=== PATIENT | female | born 1970 | race Caucasian/White ===

== ENCOUNTER 2021-02-17 07:33 | Outpatient (CLI) | payer BC, SELFPAY ==
--- NOTE | ~2021-02-17 | US_ITS ---
EXAMINATION: US right upper quadrant DATE: 02/17/2021 08:22 INDICATION: Disease of the gallbladder. TECHNIQUE: Multiple grayscale and Doppler ultrasound images of the abdomen were obtained. COMPARISON: CT abdomen and pelvis 07/14/2019 FINDINGS: The visualized portions of the head and body of the pancreas are normal. There is diffuse h epatic steatosis. There is normal flow in main portal vein. The gallbladder is again distended and ag ain contains a stone in the neck. No gallbladder wall thickening or sonographic Powers sign. The comm on duct is normal and measures 5 mm. IMPRESSION: 1. Cholelithiasis. Gallbladder distention again seen, which may be secondary to fasting. No specific evidence of acute cholecystitis. Reviewed, dictated and finalized at location B.
== END 2021-02-17 07:34 | disposition home or self-care (01) ==
PROVIDERS: PCP Family Medicine; Visit Provider Family Medicine
DX: E78.1 Pure hyperglyceridemia (principal); I10 Essential (primary) hypertension; K82.9 Disease of gallbladder, unspecified; Z79.899 Other long term (current) drug therapy
CPT/HCPCS: 76705

== ENCOUNTER 2021-03-31 13:05 | Outpatient (CLI) | payer BC, SELFPAY ==
--- NOTE | 2021-03-31 13:15 | ECG_ITS ---
Measurements Intervals [place] Rate: 74 P: 24 TN: 151 QRS: -19 QRSD: 85 T: 22 QT: 379 QTc: 422 Interpretive Statements SINUS RHYTHM INCOMPLETE RIGHT BUNDLE BRANCH BLOCK VOLTAGE CRITERIA FOR LVH POOR R WAVE PROGRESSION, ANTERIOR LEADS MINIMAL Q WAVES- HIGH LATERAL LEADS BASELINE ARTIFACT- I, II BORDERLINE ECG Electronically Signed On 03-31-2021 13:34:36 CDT by Brian Zambrano D.O.
[2021-03-31 14:08] LABS: Alanine Aminotransferase 20 U/L (4-35); Albumin Level 4.2 g/dL (3.5-5.1); Alkaline Phosphatase 82 U/L (38-126); Amylase 57 U/L (30-110); Aspartate Amino Transferase 25 U/L (14-36); Bilirubin,Total 0.2 mg/dL (0.2-1.3); Lipase 63 U/L (23-300)
== END 2021-03-31 13:06 | disposition home or self-care (01) ==
LOC: ANHSURGERY 13:08
PROVIDERS: PCP Family Medicine; Visit Provider Surgery
DX: K80.20 Calculus of gallbladder without cholecystitis without obstruction (principal); I10 Essential (primary) hypertension; Z01.818 Encounter for other preprocedural examination; I45.10 Unspecified right bundle-branch block
CPT/HCPCS: 36415; 80076; 82150; 83690; 86850; 86900; 86901; 93005

== ENCOUNTER 2021-04-08 00:49 | Day surgery (SDC) | payer BC, SELFPAY ==
[2021-03-26 14:44] VITALS: BMI 41.4
[2021-04-08] VITALS (11 sets, daily range): BP systolic 110–133; BP diastolic 53–88; PULSE 66–89; RESP 12–22; TEMP 36.8; O2SAT 98–100
[2021-04-08] MEDS: ACETAMINOPHEN 500 MG TABLET 1000 MG PO (06:55)
--- NOTE | 2021-04-08 07:06 | WPDANESEPPF ---
Anes - Initial Pre Proc Eval Procedure: Operation Date: 04/08/21 07:30 Proposed Procedures p Laparoscopic Incarcerated Ventral Hernia Repair with Mesh, Davinci Assisted - Milind Castellon DO s Laparoscopic Cholecystectomy, Possible Open - Milind Castellon DO Date/Time: 04/08/21 07:06 Surgeon: Milind Castellon DO Pre Op Diagnosis: incarc ventral hernia, cholelithiasis Patient Data Age: 51 Gender: F Height: 1.65 m Weight: 113 kg Allergies Allergy/AdvReac Type Severity Reaction Status Date / Time Sulfa (Sulfonamide Allergy Intermediate Hives Verified 04/08/21 06:48 Antibiotics) adhesive tape AdvReac Intermediate EXCORIATION Verified 04/08/21 06:48 hydrocodone AdvReac Intermediate NAUSEA/VOMI Verified 04/08/21 06:48 TING Home Medications Medication Instructions Recorded Confirmed Type lisinopril 10 mg PO QAM 03/26/21 04/08/21 History Patient hx anesthesia problems: none Family hx anesthesia problems: none PMFSH Past Medical History Medical History Breast cancer History of blood transfusion History of kidney stones Hypertension Surgical History Surgical History H/O breast reconstruction H/O mastectomy H/O oophorectomy H/O: hysterectomy 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 Family History Family History Father Hypertension Mother Hypertension Family history of malignant neoplasm Breast cancer Spotting, liver Sibling Breast cancer Grandparent Diabetes mellitus Breast cancer Cerebrovascular accident Social History Social History Smoking packs per day: 0.25 Smoking cigarettes per day: 5.0 Years smoked: 9 Smoking pack-years: 2.25 Smoking status: Former smoker Smoking end date: 04/09/10 Substance use: never Living arrangements: with family Additional living arrangements comments: SPOUSE 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 Questions were solicited and answers provided to the satisfaction of the patient/family/POA.
[2021-04-08] MEDS: SCOPOLAMINE 1.5 MG PATCH TRANSDERM (07:11)
--- NOTE | 2021-04-08 07:15 | WPDHPUPDATE1 ---
History and Physical Update Update Date/Time: 04/08/21 07:15 History and Physical has been reviewed, including an updated exam of the patient. There are NO changes in the patient's condition. Risks, benefits, and alternatives have been discussed and questions answered. Patient agrees to proceed with procedure.
--- NOTE | 2021-04-08 07:16 | PM.IMHP ---
H&P: HPI History of Present Illness Date/Time: 04/08/21 07:16 Chief Complaint: hernia, gallstones Narrative: 51 yo woman presents for lap karen and ventral hernia repair. She has been having symptoms with eating and also has a hernia superior to her umbilicus that is getting larger and causing pain. Review of Systems Review of Systems: All systems reviewed & are unremarkable except as noted in HPI and below Constitutional: Constitutional: Denies chills, Denies fever(s), Denies headache(s) and Denies weight loss Eyes: Eyes: Denies change in vision ENT: Denies dizziness, Denies headache(s), Denies neck mass and Denies throat swelling Cardiovascular: Cardiovascular: Denies chest pain, Denies lightheadedness and Denies dyspnea Respiratory: Respiratory: Denies cough, Denies dyspnea and Denies wheezing Gastrointestinal: Gastrointestinal: Denies abdominal pain, Denies change in bowel habits, Denies nausea and Denies vomiting Genitourinary: Genitourinary: Denies hematuria and Denies dysuria Musculoskeletal: Musculoskeletal: Reports as per HPI Integumentary/Breasts: Skin/Breast: Reports as per HPI Neurologic: Denies dizziness and Denies headache(s) Allergic/Immunologic: Allergic/Immunologic: Denies throat swelling and Denies wheezing [facility] Past Medical History Medical History Breast cancer History of blood transfusion History of kidney stones Hypertension Surgical History Surgical History H/O breast reconstruction H/O mastectomy H/O oophorectomy H/O: hysterectomy 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 Family History Family History Father Hypertension Mother Hypertension Family history of malignant neoplasm Breast cancer Spotting, liver Sibling Breast cancer Grandparent Diabetes mellitus Breast cancer Cerebrovascular accident Social History Social History Smoking packs per day: 0.25 Smoking cigarettes per day: 5.0 Years smoked: 9 Smoking pack-years: 2.25 Smoking status: Former smoker Smoking end date: 04/09/10 Substance use: never Living arrangements: with family Additional living arrangements comments: SPOUSE 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 [employer] Gender identity (if verbalized by the patient): Female Spiritual care concerns: No Meds Home Medications and Allergies Home Medications Medication Instructions Recorded Confirmed Type lisinopril 10 mg PO QAM 03/26/21 04/08/21 History Allergies Allergy/AdvReac Type Severity Reaction Status Date / Time Sulfa (Sulfonamide Allergy Intermediate Hives Verified 04/08/21 06:48 Antibiotics) adhesive tape AdvReac Intermediate EXCORIATION Verified 04/08/21 06:48 hydrocodone AdvReac Intermediate NAUSEA/VOMI Verified 04/08/21 06:48 TING Exam Const: General: no acute distress and alert Orientation/consciousness: patient oriented x3 HENMT: Head: normocephalic and atraumatic Ears: hearing grossly normal bilaterally General nose exam: Normal nares present Mouth: Yes Normal oral and palatal mucosa present Eyes: Periorbital: periorbital findings normal Sclera: sclerae normal EOM: EOMs intact bilaterally Neck: Neck: normal visual inspection, no lymphadenopathy and trachea midline Chest: Chest palpation & inspection: normal inspection of the chest Resp: Effort & Inspection: normal respiratory effort Auscultation: clear to auscultation bilaterally Cardio: Jugular venous distension: no JVD Rate: regular rate Rhythm: regular rhythm Heart sounds: S1 normal heart sound present and S2 normal heart sound present Peripheral pulses: Peripheral pulses 2+ throughout GI: Inspection: normal to inspection GI Palp: Yes Soft to palpation, No Tenderness to palpation present (GI), No
[2021-04-08] MEDS: KETOROLAC 15 MG/ML VIAL (*BKC) IV PUSH (07:26)
[2021-04-08] MEDS: LACTATED RINGERS 1,000 ML 30 ML IV CONT ×2 (07:27→10:48)
[2021-04-08] MEDS: ceFAZolin 2 GM/D5W 50 ML 2 GM/50 ML BAG IVPB (07:34)
--- NOTE | 2021-04-08 10:41 | W.PM.PROC2 ---
Procedure Note - Detailed Date of Procedure 04/08/21 Pre-op Diagnosis incarcerated ventral hernia, cholelithiasis Post-op Diagnosis same Procedure Performed 1. Laparoscopic Ventral Hernia Repair with Mesh, da Joesph assisted 2. Laparoscopic cholecystectomy, da Joesph assisted Surgeon Milind Castellon, Anesthesia general and local (Exparel) Indications This is a 51-year-old woman who presents with a ventral hernia that has been present for about the last 8-10 years. This started out as a small lump that has grown in size over the years. Now she states that this is about the size of a baseball and is causing more discomfort. She had a CT of her abdomen and pelvis done 2 years ago which showed evidence of a ventral supraumbilical hernia containing fat. On exam she has a hernia containing omentum that is unable to be reduced. She is also experiencing pain and diarrhea with eating fried or fatty foods. She was found to have cholelithiasis on gallbladder ultrasound. Discussions were made with the patient about treatment options and decision was made to proceed with laparoscopic cholecystectomy and laparoscopic ventral hernia repair with mesh, de Joesph assisted. Findings laparoscopic cholecystectomy and incarcerated ventral hernia repair was performed. The gallbladder had a large stone within the neck and had some chronic gallbladder wall thickening. The cystic duct appeared normal in size. The gallbladder was removed and sent to the lab for pathology. The patient was found to have a 3 cm wide by 2 cm vertical ventral hernia located about 6 cm superior to the umbilicus. This was incarcerated with omentum. The omentum was reduced and the hernia sac was also reduced along with the falciform ligament. The fascia was closed transversely with 0 strata Fix running absorbable suture and then a Symbotex 15 cm x 10 cm mesh was placed as a robotic intraperitoneal onlay mesh. The mesh was secured to the abdominal wall using 2 0 V lock running absorbable suture. Description of Procedure Procedure as well as risks, benefits, and alternatives were discussed with the patient. Written consent was obtained and placed in chart prior to procedure. Patient was brought back to surgical suite. She was placed supine on operating table. Time-out was done to confirm patient and procedure. she was then intubated by the anesthesia department. A bump was placed under her left hip, and the bed was flexed slightly to extend the space between her costal margin and iliac crest. her abdomen was prepped and draped in sterile fashion using chlorhexidine prep. A 5 millimeter incision was made in the left upper quadrant, and a 5 millimeter Optiview trocar was advanced through the abdominal layers under direct visualization. Once inside the abdominal cavity, carbon dioxide insufflation was used to create a pneumoperitoneum. her abdomen was inspected. An 8 millimeter incision was made in the left lower quadrant, and an 8 millimeter robotic trocar was placed under direct visualization. Another 8 millimeter incision was made in the left lateral abdomen, and an 8 millimeter robotic trocar was placed under direct visualization. Exparel was infiltrated along the lateral abdominal roque to perform a transversus abdominis plane block bilaterally. The 5 millimeter port was removed, the incision was extended to 12 millimeters, and a 12 millimeter air seal port was placed under direct visualization. A Javy-Bueno cone was also used to place an 0-Vicryl simple interrupted suture at this trocar site. another 8 mm incision was made in the left lateral abdomen and an 8 mm trocar was inserted under direct visualization. The robotic arms were brought up to the patient's bedside and secured to the ports. The camera and instruments were inserted, and I then moved over to the robotic console and took control of the camera and instruments. After careful thorough inspection of the abdominal ca
[2021-04-08] MEDS: fentaNYL CITRATE INJ (*CRX) 100 MCG/2 ML VIAL 25 MCG IV PUSH ×2 (11:20→11:32)
[2021-04-08] MEDS: ONDANSETRON INJ 4 MG/2 ML VIAL IV PUSH (11:21)
[2021-04-08] MEDS: oxyCODONE HCL (*CRX) 5 MG TAB IR PO (12:39)
== END 2021-04-08 13:39 | disposition home or self-care (01) ==
PROVIDERS: PCP Family Medicine; Visit Provider Surgery
PROC: (CPT 47562; principal; 2021-04-08 07:30)
PROC: 0FT44ZZ Resection of Gallbladder, Percutaneous Endoscopic Approach (ICD-10-PCS; CPT 47562; 2021-04-08 07:30)
DX: K43.6 Other and unspecified ventral hernia with obstruction, without gangrene (principal); K80.10 Calculus of gallbladder with chronic cholecystitis without obstruction; I10 Essential (primary) hypertension; Z85.3 Personal history of malignant neoplasm of breast; Z87.891 Personal history of nicotine dependence; E66.01 Morbid (severe) obesity due to excess calories; Z68.41 Body mass index [BMI] 40.0-44.9, adult
CPT/HCPCS: 47562; 49653; S2900; 36415; 80076; 82150; 83690; 86850; 86900; 86901; 88304; 93005; A9270; C1781; C9290; J0690; J1100; J1200; J1885; J2250; J2370; J2405; J2704; J2710; J3010; J7030; J7120

== ENCOUNTER 2021-05-04 10:16 | Observation (INO) | payer BC, SELFPAY ==
[2021-05-04] VITALS (28 sets, daily range): BP systolic 137–183; BP diastolic 80–96; PULSE 93–109; RESP 13–27; TEMP 36.3–38.1; O2SAT 91–100; BMI 41.3
--- NOTE | ~2021-05-04 | CT_ITS ---
EXAMINATION: CT abdomen pelvis w con DATE: 05/04/2021 13:35 INDICATION: Fever after recent hernia surgery. TECHNIQUE: Computed tomography (CT) of the abdomen and pelvis was performed with 100 cc Omnipaque 350 intravenous contrast. The dose-length product was 1438.38 mGy-cm. Automated exposure control and ite rative reconstruction technique were employed. COMPARISON: CT dated 07/14/2019. FINDINGS: There are scattered calcified granulomas in the mid and lower lungs. There is a 6 mm left l ower lobe nodule which is not clearly calcified, unchanged from prior study, also likely granulomatou s disease. Heart size normal. No significant pleural or pericardial effusion. Fatty infiltration of t he liver. No significant vascular abnormality. The spleen, pancreas, adrenal glands and left kidney a re unremarkable. There is moderate dilation of the right renal pelvis, suspicious for UPJ obstruction . Bone or no obstructing stone or mass is identified. There is a small liver cyst inferiorly in the r ight hepatic lobe. Nonobstructive bowel gas pattern. There is a small loculated fluid collection ante rior to the rectus muscles measuring 4.4 x 1.5 x 5.5 cm. There are surgical changes in the anterior a bdominal wall. There is mild subcutaneous stranding overlying the anterior abdominal wall. No abnorma l pelvic masses or fluid collections. Bladder is unremarkable. Nonobstructing bilateral nephrolithias is. IMPRESSION: 1. Moderate right hydronephrosis with transition at the UPJ, consistent with UPJ obstruction. 2: Abnormal fluid collection anterior abdominal wall which may represent postoperative seroma/hematom a, although infection is not excluded. 3: Nonobstructing bilateral nephrolithiasis. 4: Stable 6 mm left lower noncalcified granuloma. Additional calcified granulomas are present bilater ally. Reviewed, dictated and finalized at location A. IMPRESSION: 1. Moderate right hydronephrosis with transition at the UPJ, consistent with UP J obstruction. 2: Abnormal fluid collection anterior abdominal wall which may represent postop erative seroma/hematoma, although infection is not excluded. 3: Nonobstructing bilateral nephrolithiasis. 4: Stable 6 mm left lower noncalcified granuloma. Additional calcified granulom as are present bilaterally.
--- NOTE | 2021-05-04 10:46 | PC.NURSE ---
NAD upon arrival breathing and skin signs wnl.
[2021-05-04] MEDS: SODIUM CHLORIDE 0.9% IV 1,000 ML 999 ML IV CONT (12:42)
[2021-05-04 13:12] LABS: Basophils Percent Auto 0.2 % (0.2-1.2); Eosinophils Percent Auto 0.3 % (0-4.4); Hematocrit 38.6 % (37.0-47.0); Hemoglobin 12.1 g/dL (12.0-15.0); Immature Granulocyte Absolute 0.04 K/mm3 (0.00-0.031); Immature Granulocyte Percent A 0.4 % (0-0.5); Lymphocytes Absolute Auto 1.34 K/mm3 (0.9-3.2); Lymphocytes Percent Auto 12.1 % (18.3-44.2); Mean Corpuscular HGB Conc 31.3 g/dl (32-36); Mean Corpuscular Hemoglobin 27.8 pg (26-34); Mean Corpuscular Volume 88.5 fl (80-100); Mean Platelet Volume 9.3 fl (7.4-10.4); Monocytes Absolute Auto 0.5 K/mm3 (0.1-0.6); Monocytes Percent Auto 4.3 % (2.6-8.5); Neutrophils Absolute Auto 9.2 K/mm3 (1.3-6.7); Neutrophils Percent Auto 82.7 % (45.5-73.1); Platelet Count Result 251 k/mm3 (150-375); Red Blood Count 4.36 M/mm3 (4.2-5.4); Red Cell Distribution Width 13.2 % (11.5-14.5); White Blood Count 11.1 K/mm3 (4.5-10.0)
[2021-05-04 13:22] LABS: Alanine Aminotransferase 18 U/L (4-35); Albumin Level 4.3 g/dL (3.5-5.1); Alkaline Phosphatase 94 U/L (38-126); Anion Gap 10 mmol/L (8-16); Aspartate Amino Transferase 21 U/L (14-36); Bilirubin,Total 0.4 mg/dL (0.2-1.3); Blood Urea Nitrogen 9 mg/dL (7-17); Calcium 9.6 mg/dL (8.4-10.2); Carbon Dioxide 24 mmol/L (22-30); Chloride 103 mmol/L (98-107); Estimated CRCL calculation 102 ml/min; Estimated Glomerular Filt Rate > 60; Glucose 93 mg/dL (65-110); Potassium 3.6 mmol/L (3.4-5.0); Sodium 137 mmol/L (137-145)
[2021-05-04 13:24] LABS: Prothrombin Time 12.6 Seconds (11.1-14.7)
[2021-05-04 13:25] LABS: Partial Thromboplastin Time 20.2 SECONDS (22.3-36.8)
--- NOTE | 2021-05-04 13:33 | PC.NURSE ---
OFF FLOOR TO RADIOLOGY
--- NOTE | 2021-05-04 14:13 | ED.FEVER ---
HPI - Fever General Chief Complaint: Fever Stated Complaint: fever, rash, 3 weeks post op Time Seen by Provider: 05/04/21 11:41 Source: RN notes reviewed History of Present Illness HPI Narrative: Patient presents to emergency department from home for a rash. Patient states for the past 2 days she has been having fevers up to 102 ?F states that today she developed erythema across her abdomen greatest around to the bilateral sides but does not go to the back that goes from just underneath her breast down to her underwear line patient states she had surgery by Dr. Castellon for gallstones and hernia repair at the end of March she states that the area does not itch she denies any chest pain, shortness of breath abdominal pain nausea vomiting or any other symptoms Related Data Home Medications Medication Instructions Recorded Confirmed multivitamin [Multi-Vitamin] tablet 05/04/21 Allergies Allergy/AdvReac Type Severity Reaction Status Date / Time Sulfa (Sulfonamide Allergy Intermediate Hives Verified 05/04/21 11:55 Antibiotics) adhesive tape AdvReac Intermediate EXCORIATION Verified 05/04/21 11:55 hydrocodone AdvReac Intermediate NAUSEA/VOMI Verified 05/04/21 11:55 TING Review of Systems Review of Systems: Narrative: Gen.: See HPI Eyes: Denies eye pain or visual change ENT: Denies congestion Respiratory: Denies shortness of breath or cough CV: Denies chest pain or palpitations GI: Denies abdominal pain nausea, emesis or diarrhea denies burning, urgency, frequency or hematuria Musculoskeletal: Denies back pain or muscle pain Neuro: Denies numbness, tingling, weakness or focal weakness Skin: See HPI Except as documented, all other systems reviewed and negative [facility] Past Medical History Medical History Breast cancer History of blood transfusion History of kidney stones Hypertension Surgical History Surgical History H/O breast reconstruction H/O mastectomy H/O oophorectomy H/O ventral hernia repair 04/08/21 Laparoscopic Ventral Hernia Repair with Mesh, da Joesph assisted H/O: hysterectomy Hx laparoscopic cholecystectomy 04/08/21 davinci assisted 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 Family History Family History Father Hypertension Mother Hypertension Family history of malignant neoplasm Breast cancer Spotting, liver Sibling Breast cancer Grandparent Diabetes mellitus Breast cancer Cerebrovascular accident Social History Social History Smoking packs per day: 0.25 Smoking cigarettes per day: 5.0 Years smoked: 9 Smoking pack-years: 2.25 Smoking status: Former smoker Smoking end date: 04/09/10 Substance use: never Additional living arrangements comments: SPOUSE 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 CARDIOVASCULAR: Regular rate and rhythm without murmurs rubs or gallops. ABDOMINAL: Soft, nontender, nondistended, no rebound or guarding MUSCULOSKELETAl: Moves all extremities. No clubbing, cyanosis or edema. NEURO: Awake and alert. Following commands, speech normal, no focal deficits SKIN:: Warm, dry. Erythematous rash across the abdomen that goes from the underwear line up to just underneath the breast to the bilateral sides but does not extend to the back there is no open wounds there is no fluctuance in the area is nontender PSYCHIATRIC: Normal affect/mood, Course Course Emergency Course: Discus
--- NOTE | 2021-05-04 14:14 | PC.NURSE ---
Blood cultures drawn x 1 by [facility]
[2021-05-04 14:50] LABS: Add Urine Microscopic? NO; Appearance Urine Clear (Clear); Bilirubin Urine Negative (Negative); Blood Urine Negative (Negative); Color Urine Straw (Yellow); Glucose Urine UA Negative (Negative); Ketones Urine Negative (Negative); Leukocyte Esterase Ur Negative LEU/UL (Negative); Nitrate Urine Negative (Negative); Protein Urine Negative (Negative); Specific Grav Ur 1.008 (1.001-1.035); Urobilinogen Urine Negative mg/dL (<2.0)
--- NOTE | 2021-05-04 16:03 | PM.IMHP ---
H&P: HPI History of Present Illness Date/Time: 05/04/21 16:03 Chief Complaint: Abdominal cellulitis Narrative: this is a 51-year-old woman who presented to the emergency department today with fevers and redness over her abdomen. She is about 4 weeks out from a laparoscopic cholecystectomy and robotic assisted ventral hernia repair with mesh. She was doing well postoperatively until the last 2 days. She began noticing a fever initially but was not really having any other particular complaints. The fever improved some overnight and this morning seemed to be afebrile, but then fever came back and was not resolving even with acetaminophen. Today she also noticed a red rash across her entire abdomen. She had not noticed this previously. She did have some occasional drainage from 1 of the incisions postoperatively healed well. She is not complaining of very much pain. She denies any dysuria or cough. A CT of her abdomen and pelvis was obtained in the emergency department and this did show a small fluid collection over the hernia previously was, but mesh and repair appears intact. Review of Systems Review of Systems: All systems reviewed & are unremarkable except as noted in HPI and below Constitutional: Constitutional: Reports fever(s) Eyes: Eyes: Denies change in vision ENT: Denies hearing loss, Denies neck pain and Denies sore throat Cardiovascular: Cardiovascular: Denies chest pain and Denies dyspnea Respiratory: Respiratory: Denies cough, Denies dyspnea and Denies wheezing Gastrointestinal: Gastrointestinal: Denies abdominal pain, Denies nausea and Denies vomiting Genitourinary: Genitourinary: Denies hematuria and Denies dysuria Musculoskeletal: Musculoskeletal: Denies arthralgias, Denies joint swelling and Denies neck pain Integumentary/Breasts: Skin/Breast: Reports as per HPI Allergic/Immunologic: Allergic/Immunologic: Denies wheezing [facility] Past Medical History Medical History Breast cancer History of blood transfusion History of kidney stones Hypertension Surgical History Surgical History (Updated 05/04/21 @ 16:11 by Milind Castellon DO) H/O breast reconstruction H/O mastectomy H/O oophorectomy H/O ventral hernia repair 04/08/21 Laparoscopic Ventral Hernia Repair with Mesh, da Joesph assisted H/O: hysterectomy Hx laparoscopic cholecystectomy 04/08/21 davinci assisted 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 Family History Family History Father Hypertension Mother Hypertension Family history of malignant neoplasm Breast cancer Spotting, liver Sibling Breast cancer Grandparent Diabetes mellitus Breast cancer Cerebrovascular accident Social History Social History Smoking packs per day: 0.25 Smoking cigarettes per day: 5.0 Years smoked: 9 Smoking pack-years: 2.25 Smoking status: Former smoker Smoking end date: 04/09/10 Substance use: never Additional living arrangements comments: SPOUSE 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[employer] Gender identity (if verbalized by the patient): Female Spiritual care concerns: No Meds Home Medications and Allergies Home Medications Medication Instructions Recorded Confirmed Type lisinopril 10 mg tablet See Rx Instructions .ROUTE 04/27/21 04/30/21 Rx .COMPLEX #90 tablet multivitamin [Multi-Vitamin] tablet 05/04/21 History Allergies Allergy/AdvReac Type Severity Reaction Status Date / Time Sulfa (Sulfonamide Allergy Intermediate Hives Verified 05/04/21 11:55 Antibiotics) adhesive tape AdvReac Intermediate EXCORIATION Verified 05/04/21 11:55 hydrocodone AdvReac Intermediate NAUSEA/VOMI Verified 05/04/21 11:55 TING Vital Signs Vital Signs - 24 hr 05/04/21 11:10 05/04/21 11:49 05/04/21 11:57 Temperature 37.6
--- NOTE | 2021-05-04 17:34 | ADMGEN ---
This patient, Marilyn Thomson, was admitted to [facility] Surg Room 302-01. Patient/family oriented to hospital policies and general routines including ID bracelet, bed and alarms, visiting hours, pain management, procedures, bathroom and other care routines, personal items, smoking policy, room service/diet, and visiting hours. Information on how to activate the Rapid Response Team has been discussed. Patient/Family are encouraged to report perceived risks to care and to ask questions if they do not understand what they are told or what they should do.
[2021-05-05 06:00] VITALS: BP 129/77; PULSE 97; RESP 18; TEMP 37.2; O2SAT 95
[2021-05-05] MEDS: ACETAMINOPHEN 500 MG TABLET 1000 MG PO ×2 (06:07→16:56)
[2021-05-05 06:08] LABS: Basophils Percent Auto 0.2 % (0.2-1.2); Eosinophils Percent Auto 0.4 % (0-4.4); Immature Granulocyte Absolute 0.04 K/mm3 (0.00-0.031); Immature Granulocyte Percent A 0.4 % (0-0.5); Lymphocytes Absolute Auto 1.72 K/mm3 (0.9-3.2); Lymphocytes Percent Auto 16.4 % (18.3-44.2); Mean Corpuscular HGB Conc 31.6 g/dl (32-36); Mean Corpuscular Volume 88.6 fl (80-100); Mean Platelet Volume 9.3 fl (7.4-10.4); Monocytes Absolute Auto 0.7 K/mm3 (0.1-0.6); Monocytes Percent Auto 6.4 % (2.6-8.5); Neutrophils Percent Auto 76.2 % (45.5-73.1); Platelet Count Result 247 k/mm3 (150-375); Red Blood Count 4.29 M/mm3 (4.2-5.4); Red Cell Distribution Width 13.5 % (11.5-14.5); White Blood Count 10.5 K/mm3 (4.5-10.0)
[2021-05-05] MEDS: diphenhydrAMINE HCl CAP 25 MG CAPSULE PO (06:08)
[2021-05-05 06:22] LABS: Anion Gap 11 mmol/L (8-16); Blood Urea Nitrogen 6 mg/dL (7-17); Calcium 9.4 mg/dL (8.4-10.2); Carbon Dioxide 24 mmol/L (22-30); Chloride 102 mmol/L (98-107); Estimated CRCL calculation 90 ml/min; Estimated Glomerular Filt Rate > 60; Glucose 134 mg/dL (65-110); Potassium 3.8 mmol/L (3.4-5.0); Sodium 137 mmol/L (137-145)
[2021-05-05 10:47] VITALS: O2SAT 95
[2021-05-05 14:00] VITALS: BP 116/77; PULSE 82; RESP 18; TEMP 36.6; O2SAT 97
--- NOTE | 2021-05-05 14:32 | PM.PNGS ---
Progress Note: A&P Assessment and Plan (1) Abdominal wall cellulitis: Code(s): L03.311 - Cellulitis of abdominal wall Status: Acute Assessment and Plan: Awaiting blood cultures, continue Ancef today Repeat CBC tomorrow. If remaining afebrile, will likely be able to discharge tomorrow. If rash continues to spread, will possibly start Medrol Dosepak on discharge. (2) H/O ventral hernia repair: Code(s): Z98.890 - Other specified postprocedural states; Z87.19 - Personal history of other diseases of the digestive system Status: Acute Subjective Subjective Date/Time Seen: 05/05/21 14:32 Interval history: Rash has spread up to patient's chest today. She has not had a fever since yesterday. No pain. Slightly itchy over rash but benadryl helped. Exam Skin: Other: Macular reddened rash over upper abdomen and chest. No open wounds or drainage. Objective Data Vital Signs Vital Signs: Vital Signs - 24 hr 05/04/21 14:38 05/04/21 14:40 05/04/21 14:41 Temperature 37.4 C Pulse Rate 99 98 102 H Respiratory Rate 16 17 Blood Pressure 152/82 H Pulse Oximetry 98 98 99 05/04/21 14:45 05/04/21 14:46 05/04/21 15:00 Temperature Pulse Rate 99 101 H 99 Respiratory Rate 14 21 H 13 Blood Pressure 153/90 H Pulse Oximetry 98 100 98 05/04/21 15:19 05/04/21 15:33 05/04/21 15:45 Temperature Pulse Rate 100 101 H 106 H Respiratory Rate 20 17 21 H Blood Pressure Pulse Oximetry 98 100 100 05/04/21 16:07 05/04/21 16:15 05/04/21 16:30 Temperature Pulse Rate 100 103 H 102 H Respiratory Rate 27 H 21 H 23 H Blood Pressure Pulse Oximetry 99 98 99 05/04/21 16:45 05/04/21 17:07 05/04/21 17:14 Temperature 37.8 C H Pulse Rate 103 H 107 H Respiratory Rate 17 17 20 Blood Pressure 156/88 H Pulse Oximetry 100 91 100 05/04/21 17:37 05/04/21 17:56 05/04/21 18:27 Temperature 38.1 C H 38.1 C H 37.7 C H Pulse Rate 109 H Respiratory Rate 14 Blood Pressure 158/93 H Pulse Oximetry 98 05/04/21 21:54 05/05/21 06:00 05/05/21 10:47 Temperature 36.3 C L 37.2 C Pulse Rate 107 H 97 Respiratory Rate 16 18 Blood Pressure 137/80 129/77 Pulse Oximetry 97 95 95 Intake/Output Intake/Output: Intake & Output 05/02/21 05/03/21 05/04/21 05/05/21 23:59 23:59 23:59 23:59 Intake Total 1530 1010 Balance 1530 1010 Meds/Results Medications: Active Medications Generic Name Dose Route Start Last Admin Trade Name Freq PRN Reason Stop Dose Admin Cefazolin Sodium 1 gm in 50 mls @ 100 mls/hr 05/04/21 22:00 05/05/21 14:07 Ancef 1 Gm/D5w 50 Ml Pm IVPB 100 mls/hr Q8H ANTOINE Administration Radiology Results: ITS Impressions Abdomen/Pelvis CT 05/04/21 13:44 IMPRESSION: 1. Moderate right hydronephrosis with transition at the UPJ, consistent with UPJ obstruction. 2: Abnormal fluid collection anterior abdominal wall which may represent postoperative seroma/hematoma, although infection is not excluded. 3: Nonobstructing bilateral nephrolithiasis. 4: Stable 6 mm left lower noncalcified granuloma. Additional calcified granulomas are present bilaterally. Labs Labs: Laboratory Results - last 24 hr 05/04/21 05/05/21 05/05/21 14:36 05:48 05:48 WBC 10.5 H RBC 4.29 Hgb 12.0 Hct 38.0 MCV 88.6 MCH 28.0 MCHC 31.6 L RDW 13.5 Plt Count 247 MPV 9.3 Immature Gran % (Auto) 0.4 Neut % (Auto) 76.2 H Lymph % (Auto) 16.4 L [place] % (Auto) 6.4 Eos % (Auto) 0.4 Baso % (Auto) 0.2 Lymph # (Auto) 1.72 [place] # (Auto) 0.7 H Eos # (Auto) 0.0 Baso # (Auto) 0.0 Abs Immat Gran (auto) 0.04 H Absolute Neuts (auto) 8.0 H Absolute Nucleated RBC 0.0 Nucleated RBC % 0.0 Sodium 137 Potassium 3.8 Chloride 102 Carbon Dioxide 24 Anion Gap 11 BUN 6 L Creatinine 0.80 Estim Creat Clear Calc 90 Estimated GFR > 60 Glucose 134 H Calcium 9.4 Urine Color Stra
[2021-05-05 21:37] VITALS: BP 116/67; PULSE 79; RESP 20; TEMP 36.8; O2SAT 98
[2021-05-06] MEDS: ACETAMINOPHEN 500 MG TABLET 1000 MG PO ×2 (01:54→09:45)
[2021-05-06 05:48] VITALS: BP 112/68; PULSE 82; RESP 18; TEMP 36.6; O2SAT 95
[2021-05-06 06:41] LABS: Hematocrit 37.3 % (37.0-47.0); Hemoglobin 11.8 g/dL (12.0-15.0); Mean Corpuscular HGB Conc 31.6 g/dl (32-36); Mean Corpuscular Hemoglobin 27.5 pg (26-34); Mean Corpuscular Volume 86.9 fl (80-100); Mean Platelet Volume 9.2 fl (7.4-10.4); Platelet Count Result 285 k/mm3 (150-375); Red Blood Count 4.29 M/mm3 (4.2-5.4); Red Cell Distribution Width 13.4 % (11.5-14.5); White Blood Count 8.2 K/mm3 (4.5-10.0)
[2021-05-06] MEDS: lisinopriL 10 MG TABLET BY MOUTH (09:47)
--- NOTE | 2021-05-06 12:29 | PM.DS ---
DS: Admitting Diagnosis Admitting Diagnosis Abdominal cellulitis, Fevers DS: Discharge Diagnosis Discharge Diagnosis (1) Abdominal wall cellulitis: Code(s): L03.311 - Cellulitis of abdominal wall Status: Acute (2) H/O ventral hernia repair: Code(s): Z98.890 - Other specified postprocedural states; Z87.19 - Personal history of other diseases of the digestive system Status: Acute DS: Summary Hospital Course Reason for hospitalization: Abdominal wall cellulitis, fevers Hospital Course: this is a 51-year-old woman who presented to the emergency department with afebrile illness. She began experiencing fevers about 1 day prior to presentation. Initially she was having no associated symptoms, but on 05/04 she awoke with a rash on her abdomen. The redness was spread throughout her abdomen and her fevers were not improving. She was noted to have a slightly elevated white blood count in the ED and CT showed essentially postoperative changes with no signs of deeper infection. Blood cultures were obtained in the emergency department. She was admitted and placed on Ancef. IV antibiotics were continued. On 05/05 her fever seemed to have resolved. Her white blood count was improving but was still slightly elevated at 11,000. She was kept on IV antibiotics 1 more day and 05/06, her white blood count had normalized. Blood cultures were still not back yet. Her rash was slightly improved but she still had a fair amount of erythema across her abdomen. She was experiencing some itching with this as well. Decision was made to discharge her on 05/06 on Keflex and Medrol Dosepak. Status at Discharge Functional status at discharge: independent ambulation Overall status at discharge: patient is progressing back to baseline Time Spent with Patient Time attestation: Total time spent providing and/or coordinating discharge services: Time spent: Less than 30 minutes Exam Const: General: comfortable and no acute distress Orientation/consciousness: patient oriented x3 Cardio: Jugular venous distension: no JVD Rate: regular rate Rhythm: regular rhythm Heart sounds: S1 normal heart sound present and S2 normal heart sound present GI: Inspection: obesity and other ( Erythema across upper abdomen and chest and bilateral breasts.) GI Palp: Yes Soft to palpation, No Tenderness to palpation present (GI), No Guarding due to palpation present (GI) and No Hernia present Other: erythematous rash, but no significant warmth to touch or the weeping wounds. DS: Data Data Completed and Pending Labs on day of discharge: Labs from last 24 hours 05/06/21 06:25 WBC 8.2 RBC 4.29 Hgb 11.8 L Hct 37.3 MCV 86.9 MCH 27.5 MCHC 31.6 L RDW 13.4 Plt Count 285 MPV 9.2 Imaging Radiologist's impression: ITS Impressions Abdomen/Pelvis CT 05/04/21 13:44 IMPRESSION: 1. Moderate right hydronephrosis with transition at the UPJ, consistent with UPJ obstruction. 2: Abnormal fluid collection anterior abdominal wall which may represent postoperative seroma/hematoma, although infection is not excluded. 3: Nonobstructing bilateral nephrolithiasis. 4: Stable 6 mm left lower noncalcified granuloma. Additional calcified granulomas are present bilaterally. Discharge Plan Discharge Attending physician on discharge: Milind Castellon Discharging Clinician: Milind Castellon Patient Disposition: Home, Self-Care Activity: may shower and no straining Diet: as tolerated Wound Care Instructions: other - see discharge instructions Discharge Instructions: Call office for increasing redness, wound concerns, or fevers Patient Instructions: Antibiotic Form, Cellulitis (GEN) Stand Alone Forms: General Discharge Information, Work/School Release IP Follow-up/Referrals: Milind Castellon, [Physician] - Keep Reg. Scheduled Appt. Discharge Medications: New cephalexin 500 mg capsule 500 mg PO Q6H 10 Days Qty:
== END 2021-05-06 12:38 | disposition home or self-care (01) ==
LOC: ANHED 14:16 → ANH3MEDSUR 16:11
PROVIDERS: Admitting Provider Surgery; Emergency Provider Emergency Medicine; PCP Family Medicine; Visit Provider Surgery
DX: L03.311 Cellulitis of abdominal wall (principal); L76.82 Other postprocedural complications of skin and subcutaneous tissue; R50.82 Postprocedural fever; I10 Essential (primary) hypertension; Z85.3 Personal history of malignant neoplasm of breast; Z87.891 Personal history of nicotine dependence
CPT/HCPCS: 36415; 74177; 80048; 80053; 81003; 83605; 85025; 85027; 85610; 85730; 87040; 96361; 96365; 96366; 96367; 99285; A9270; G0378; J0131; J0690; J7030; Q9967

== ENCOUNTER 2021-07-02 07:00 | Outpatient (CLI) | payer BC, SELFPAY ==
--- NOTE | ~2021-07-02 | XR_ITS ---
EXAMINATION: XR elbow LT min 3V DATE: 07/02/2021 07:20 INDICATION: Left elbow pain. TECHNIQUE: 4 views of left elbow were obtained. COMPARISON: None. FINDINGS: Bone alignment is normal. No fracture. Joint spaces are well maintained. There is no elbow joint effusion. IMPRESSION: 1. No fracture. Reviewed, dictated and finalized at location A. IMPRESSION: 1. No fracture.
== END 2021-07-02 07:01 | disposition home or self-care (01) ==
LOC: ANHIMG 07:06
PROVIDERS: PCP Family Medicine; Visit Provider Family Medicine
DX: M25.522 Pain in left elbow (principal)
CPT/HCPCS: 73080

== ENCOUNTER 2022-03-06 18:09 | Emergency (ER) | payer BC, SELFPAY ==
--- NOTE | 2022-03-06 18:11 | ED.URI ---
HPI - URI/Sore Throat General Chief Complaint: Upper Respiratory Infection Stated Complaint: sinus infection Time Seen by Provider: 03/06/22 18:11 Source: patient Mode of arrival: ambulatory Limitations: no limitations History of Present Illness HPI Narrative: Ms. Chester is a 51-year-old female patient presenting to the clinic today with possible sinus infection. She reports she has tenderness over the right maxilla as well as right-sided ear pain and nasal drainage. She denies any fever or chills. She denies any known exposure to anybody with flu or strep but has had COVID exposure as her tested positive. She did a COVID test prior to coming in today and it was negative. MD elicited complaint: rhinorrhea, nasal congestion, sinus pain and other (Right ear pain) Related Data Home Medications Medication Instructions Recorded Confirmed multivitamin (Daily Multi-Vitamin) 60 tablet PO DAILY 05/04/21 06/05/21 Allergies Allergy/AdvReac Type Severity Reaction Status Date / Time Sulfa (Sulfonamide Allergy Intermediate Hives Verified 09/21/21 11:34 Antibiotics) adhesive tape AdvReac Intermediate EXCORIATION Verified 09/21/21 11:34 hydrocodone AdvReac Intermediate NAUSEA/VOMI Verified 09/21/21 11:34 TING Review of Systems Review of Systems: Pertinent positives per HPI. Patient denies any fever, chills, rash, headache, visual changes, dizziness, cough, shortness of breath, chest pain, palpitations, nausea, vomiting, diarrhea, constipation, abdominal pain, or any urinary issues. [facility] Past Medical History Medical History Breast cancer History of blood transfusion History of kidney stones Hypertension Surgical History Surgical History H/O breast reconstruction H/O mastectomy H/O oophorectomy H/O ventral hernia repair 04/08/21 Laparoscopic Ventral Hernia Repair with Mesh, da Joesph assisted H/O: hysterectomy Hx laparoscopic cholecystectomy 04/08/21 davinci assisted 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 Family History Family History Father Hypertension Mother Spotting, liver Family history of malignant neoplasm Breast cancer Hypertension Sibling Breast cancer Grandparent Diabetes mellitus Cerebrovascular accident Other Breast cancer Social History Social History Smoking packs per day: 0.25 Smoking cigarettes per day: 5.0 Years smoked: 9 Smoking pack-years: 2.25 Smoking end date: 04/09/10 Alcohol intake: never Substance use: never Additional living arrangements comments: SPOUSE 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 There is no relevant family history pertinent to the patient complaint. Exam Narrative: General: Well-developed, well nourished, in no apparent distress Head: Normocephalic, atraumatic Eyes: Pupils equally round and reactive to light bilaterally, EOM intact, sclera and conjunctive clear, no discharge, lids normal Ears: Left TMs intact and clear, right TM intact, red, bulging, ear canals clear, no drainage, grossly hearing normal. Nose: Nares patent, no discharge, no inflammation, sinus tenderness to palpation over the right maxilla Mouth: Oral pharynx without lesions or masses, good dentition, MMM. Postnasal drip Neck: Supple, trachea midline, no enlargement of anterior or posterior cervical nodes, no thyroid masses or goiter palpable. Cardio: Regular rate and rhythm, s1 and s2 normal, no
[2022-03-06 18:13] VITALS: BP 127/72; PULSE 92; RESP 16; TEMP 36.7; O2SAT 98
== END 2022-03-06 18:31 | disposition home or self-care (01) ==
PROVIDERS: Emergency Provider Nurse Practitioner Family; PCP Family Medicine
DX: H66.91 Otitis media, unspecified, right ear (principal); J06.9 Acute upper respiratory infection, unspecified; Z87.891 Personal history of nicotine dependence; I10 Essential (primary) hypertension; Z85.3 Personal history of malignant neoplasm of breast; Z90.10 Acquired absence of unspecified breast and nipple
CPT/HCPCS: 99213; G0463

== ENCOUNTER 2022-03-13 09:48 | Emergency (ER) | payer BC, SELFPAY ==
[2022-03-13 10:07] VITALS: BP 113/75; PULSE 85; RESP 20; TEMP 36.5; O2SAT 97
--- NOTE | 2022-03-13 10:24 | ED.EAR ---
HPI - Ear Problem General Chief complaint: Ear Stated complaint: ears/ feels like water in them Time Seen by Provider: 03/13/22 10:50 Source: patient and RN notes reviewed Mode of arrival: ambulatory Limitations: no limitations History of Present Illness HPI Narrative: 51-year-old female presents with concern for feeling of fullness in her ears. Reports she was treated for an ear infection on March 06. Reports the pain improved, however she still has a feeling of fullness and like her ears are clogged. She reports occasionally she will take a multisymptom cold medicine, denies other [id number] intervention. She denies drainage from the ears, fever, bodies, chills, sweats, cough. MD Complaint: ear pain Related Data Home Medications Medication Instructions Recorded Confirmed multivitamin (Daily Multi-Vitamin 60 tablet PO DAILY 05/04/21 06/05/21 tablet) Allergies Allergy/AdvReac Type Severity Reaction Status Date / Time Sulfa (Sulfonamide Allergy Intermediate Hives Verified 09/21/21 11:34 Antibiotics) adhesive tape AdvReac Intermediate EXCORIATION Verified 09/21/21 11:34 hydrocodone AdvReac Intermediate NAUSEA/VOMI Verified 09/21/21 11:34 TING Review of Systems Review of Systems: CONSTITUTIONAL: Denies malaise, chills, sweats, or fever. EYES: Denies visual changes, redness, or discharge. ENT: Denies rhinorrhea, congestion, sinus pain, and sore throat. Reports ear fullness bilaterally CARDIOVASCULAR: Denies chest pain, palpitations, or edema. RESPIRATORY: Denies cough. Denies dyspnea. GASTROINTESTINAL: Denies abdominal pain, nausea, vomiting, diarrhea SKIN: Denies rash or itching. MUSCULOSKELETAL: Denies myalgia. NEUROLOGIC: Denies headache. All systems reviewed & are unremarkable except as noted in HPI and below PMFSH Past Medical History Medical History Breast cancer History of blood transfusion History of kidney stones Hypertension Surgical History Surgical History H/O breast reconstruction H/O mastectomy H/O oophorectomy H/O ventral hernia repair 04/08/21 Laparoscopic Ventral Hernia Repair with Mesh, da Joesph assisted H/O: hysterectomy Hx laparoscopic cholecystectomy 04/08/21 davinci assisted 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 Family History Family History Father Hypertension Mother Spotting, liver Family history of malignant neoplasm Breast cancer Hypertension Sibling Breast cancer Grandparent Diabetes mellitus Cerebrovascular accident Other Breast cancer Social History Social History Smoking packs per day: 0.25 Smoking cigarettes per day: 5.0 Years smoked: 9 Smoking pack-years: 2.25 Smoking end date: 04/09/10 Alcohol intake: never Substance use: never Additional living arrangements comments: SPOUSE 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 There is no relevant family history pertinent to the presenting complaint Exam Narrative: GENERAL: Well-appearing, well-nourished, and in no acute distress. HEAD: Normocephalic EYES: PERRLA, conjunctivae clear ENT: Nares clear. Mucous membranes moist. TM pearly boswell with dull light reflex bilaterally; no tragal tenderness. Oropharynx not erythematous without lesions. Tonsils not enlarged and without exudate, no drooling, no hoarseness, no trismus, uvula midline. NECK: Supple. No lymphadenopathy CHEST: Clear to auscultation, breath sounds equal. No wheezing, rhonchi, rales, or stridor. N
== END 2022-03-13 11:07 | disposition home or self-care (01) ==
PROVIDERS: Emergency Provider Nurse Practitioner; PCP Family Medicine
DX: H69.93 Unspecified Eustachian tube disorder, bilateral (principal); Z87.891 Personal history of nicotine dependence; I10 Essential (primary) hypertension; Z85.3 Personal history of malignant neoplasm of breast; Z90.10 Acquired absence of unspecified breast and nipple
CPT/HCPCS: 99213; G0463

== ENCOUNTER 2022-12-03 16:01 | Emergency (ER) | payer BC, SELFPAY ==
[2022-12-03 16:09] VITALS: BP 155/87; PULSE 83; RESP 16; TEMP 36.4; O2SAT 99
--- NOTE | 2022-12-03 16:53 | ED.URI ---
HPI - URI/Sore Throat General Chief Complaint: Upper Respiratory Infection Stated Complaint: chest congestion; sinus pressure; cough; mucous Time Seen by Provider: 12/03/22 16:54 Source: patient, RN notes reviewed and old records reviewed Mode of arrival: ambulatory Limitations: no limitations History of Present Illness HPI Narrative: 52 year old female who presents to [facility] care with 4 week history of sinus pressure and chest congestion especially at night with cough worse also at night. Patient reports that she has been expectorating some green phlegm. Patient also reports that she has some tonsil pain and notes post nasal drainage. Patient states that she has been taking Mucinex, Advil cold and sinus, DayQuil and Sudafed for her symptoms without resolution.Reports no known fevers, chest pain or dyspnea. MD elicited complaint: cough, sore throat, rhinorrhea and nasal congestion Onset (ago): month(s) (1) Description of mucous: green Able to tolerate fluids by mouth: Yes Treatments prior to arrival: cold medicine and other (mucinex and sudafed) Related Data Allergies Allergy/AdvReac Type Severity Reaction Status Date / Time Sulfa (Sulfonamide Allergy Intermediate Hives Verified 12/03/22 16:17 Antibiotics) adhesive tape AdvReac Intermediate EXCORIATION Verified 12/03/22 16:17 hydrocodone AdvReac Intermediate NAUSEA/VOMI Verified 12/03/22 16:17 TING Review of Systems Review of Systems: CONSTITUTIONAL: Denies malaise, chills, sweats, or fever. EYES: Denies visual changes, redness, or discharge. ENT: Reports rhinorrhea, congestion, sinus pain, no otalgia positive for sore throat. CARDIOVASCULAR: Denies chest pain, palpitations, or edema. RESPIRATORY: Reports cough.? Denies dyspnea. GASTROINTESTINAL: Denies abdominal pain, nausea, vomiting, diarrhea SKIN: Denies rash or itching. MUSCULOSKELETAL: Denies myalgia. NEUROLOGIC: Denies headache. All systems reviewed & are unremarkable except as noted in HPI and below PMFSH Past Medical History Medical History (Updated 12/06/22 @ 13:28 by Rachel Dill NP) Breast cancer History of blood transfusion History of kidney stones Hypertension Weight loss, intentional Surgical History Surgical History H/O breast reconstruction H/O mastectomy H/O oophorectomy H/O ventral hernia repair 04/08/21 Laparoscopic Ventral Hernia Repair with Mesh, da Joesph assisted H/O: hysterectomy Hx laparoscopic cholecystectomy 04/08/21 davinci assisted 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 Family History Family History Father Hypertension Mother Spotting, liver Family history of malignant neoplasm Breast cancer Hypertension Sibling Breast cancer Grandparent Diabetes mellitus Cerebrovascular accident Other Breast cancer Social History Social History (Updated 08/04/22 @ 07:42 by Yola Dukes NP-Twyla) Smoking packs per day: 0.25 Smoking cigarettes per day: 5.0 Years smoked: 9 Smoking pack-years: 2.25 Smoking status: Former smoker Smoking end date: 04/09/10 Alcohol intake: never Substance use: never Lack of Transportation: No Lack of Food: Never True Current Housing: I Have Housing Concerned About Future Housing: No Difficulty Paying Gas/Electric Bills: No Difficulty Paying for Meds: No Currently Unemployed: No Education: High School Diploma/GED Difficulty w/ Childcare or Family Care: No Living arrangements: with family Additional living arrangements comments: SPOUSE Occupation/Education: occupation 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
== END 2022-12-03 17:08 | disposition home or self-care (01) ==
PROVIDERS: Emergency Provider Registered Nurse; PCP Family Medicine
DX: J32.9 Chronic sinusitis, unspecified (principal); R05.9 Cough, unspecified; I10 Essential (primary) hypertension; Z85.3 Personal history of malignant neoplasm of breast; Z87.891 Personal history of nicotine dependence
CPT/HCPCS: 99213; G0463

== ENCOUNTER 2023-08-01 13:56 | Outpatient (CLI) | payer BC, SELFPAY ==
--- NOTE | ~2023-08-01 | XR_ITS ---
AP and lateral views of the bilateral hips Clinical history: Pain Findings: No acute fracture or dislocation is seen. Osseous alignment is anatomic. Bilateral hip and SI joint spaces are preserved. Soft tissues are unremarkable. Impression: No significant abnormality is seen. Reviewed, dictated and finalized at location . Impression: No significant abnormality is seen.
== END 2023-08-01 13:57 ==
PROVIDERS: PCP Family Medicine; Visit Provider Family Medicine
DX: M25.551 Pain in right hip (principal); M25.552 Pain in left hip
CPT/HCPCS: 73521

== ENCOUNTER 2024-08-17 12:41 | Outpatient (CLI) | payer BC, SELFPAY ==
--- NOTE | ~2024-08-17 | US_ITS ---
EXAMINATION: Ultrasound examination of the right anterior chest wall HISTORY: 54-year-old woman with a personal history of breast cancer post bilateral mastectomy present s with palpable abnormalities in the lower inner quadrant of the right anterior chest wall (patient h ad undergone a TRAM flap reconstruction in 2009). TECHNIQUE: Sonographic evaluation of the soft tissues of the anterior chest wall were performed asses sing grayscale appearance. FINDINGS: Within the area of clinical concern are multiple shadowing foci of increased echogenicity, the larges t measuring 6.9 mm in medial to lateral dimension. Sonographic evaluation of the remainder of the soft tissues of the anterior chest wall demonstrate be nign fibroglandular elements a cystic or solid lesion of concern. IMPRESSION: No color interrogation was performed on the submitted images. These likely represent small stitch granulomas versus additional postoperative change. However, given patient's personal as well as strong family history of breast cancer, as well as a lef t-sided implant which is greater than 10 years old (as the average lifespan of a saline implant is ap proximately 10 years), contrast-enhanced MRI may be performed (to evaluate implant integrity) and to confirm benignity of the palpable abnormality. Reviewed, dictated and finalized at location A. STANT PROJECT MANAGER IMPRESSION: No color interrogation was performed on the submitted images. These likely represent small stitch granulomas versus additional postoperative change. However, given patient's personal as well as strong family history of breast ca ncer, as well as a left-sided implant which is greater than 10 years old (as th e average lifespan of a saline implant is approximately 10 years), contrast-enh anced MRI may be performed (to evaluate implant integrity) and to confirm benig nity of the palpable abnormality.
== END 2024-08-17 12:42 | disposition home or self-care (01) ==
LOC: MICIMG 12:42
PROVIDERS: PCP Family Medicine; Visit Provider Family Medicine
DX: N63.10 Unspecified lump in the right breast, unspecified quadrant (principal); Z90.10 Acquired absence of unspecified breast and nipple
CPT/HCPCS: 76604

== ENCOUNTER 2024-09-19 13:48 | Outpatient (CLI) | payer BC, SELFPAY ==
--- NOTE | ~2024-09-19 | MR_ITS ---
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 Patient is 54-year-old femal e with history of breast cancer status post mastectomy. There is a left breast implant. TRAM flap rec onstruction of the right breast. Family history of breast cancer. TECHNIQUE: MRI of the breasts perform using standard protocol pre-and post IV contrast with the follo wing sequences: Axial T2 STIR, axial T1, axial vibrant T1 with fat suppression precontrast and multip hasic postcontrast. 20 cc MultiHance administered intravenously. COMPARISON: Ultrasound dated 08/17/2024 FINDINGS: Right breast: There are no abnormalities on the precontrast sequences. There is mild background paren chymal enhancement. No enhancing lesions following contrast administration. No areas of enhancement meeting threshold criteria on CAD analysis. There are surgical changes of TRAM flap reconstruction. No evidence of signal abnormalities in the axillary or internal mammary node distributions. LEFT BREAST: No signal abnormalities on precontrast sequences. There is mild background parenchymal enhancement. No enhancing lesions following contrast administration. No areas of enhancement meeti ng threshold criteria on CAD analysis. There is a left breast implant. No evidence for implant ruptur e. No evidence of signal abnormalities in the axillary or internal mammary node distributions. IMPRESSION: 1: Right breast: Negative. No evidence of malignancy. BI-RADS category 1. Recommend annual mammo graphy follow-up. 2: Left breast: Negative. No evidence of malignancy. BI-RADS category 1. Recommend annual mammogr aphy follow-up. Follow-up MRI may be useful for supplementing mammographic evaluation as clinically indicated. Reviewed, dictated and finalized at location B. NOMETER TESTER IMPRESSION: 1: Right breast: Negative. No evidence of malignancy. BI-RADS category 1. Recommend annual mammography follow-up. 2: Left breast: Negative. No evidence of malignancy. BI-RADS category 1. Re commend annual mammography follow-up. Follow-up MRI may be useful for supplementing mammographic evaluation as clinic ally indicated.
== END 2024-09-19 13:49 | disposition home or self-care (01) ==
PROVIDERS: PCP Family Medicine; Visit Provider Family Medicine
DX: N63.10 Unspecified lump in the right breast, unspecified quadrant (principal); R22.2 Localized swelling, mass and lump, trunk; Z85.3 Personal history of malignant neoplasm of breast; Z90.10 Acquired absence of unspecified breast and nipple
CPT/HCPCS: 77049; A9577; C8908